=== PATIENT | female | born 1985 | race Caucasian/White ===

== ENCOUNTER 2023-03-07 14:05 | Outpatient (CLI) | payer OTHER ==
[~2023-03-07 14:05] MED LIST: PRENATAL CAPLE1 EACH PO
== END 2023-03-07 14:18 | disposition home or self-care (01) ==
LOC: MAMO-SONO 14:05
PROVIDERS: ATTEND Specialist
DX: Z12.31 Encounter for screening mammogram for malignant neoplasm of breast (principal); N63.0 Unspecified lump in unspecified breast